=== PATIENT | female | born 1995 | race African-American/Black ===

== ENCOUNTER 2018-05-01 17:43 | Emergency (ER) | payer BC ==
[~2018-05-01] VITALS: Ht 170.2 cm; Wt 81.9 kg
[2018-05-01 18:00] VITALS: BP 115/65; PULSE 67; RESP 16; TEMP 98.3; O2SAT 100
[2018-05-01] MEDS ORDERED: HYDR1CRE TOPICAL (18:38)
--- NOTE | 2018-05-01 18:39 | PD ---
HPI Chief Complaint: Skin Problem Time Seen by Provider: 18:14 Travel History International Travel<30 days: No Contact w/Intl Traveler<30days: No Traveled to known affect area: No History of Present Illness HPI This is a 23-year-old female here with a pruritic rash to her left medial thigh 2 days. Symptom severity is mild. She has not attempted any [id number] medications. Denies any new soaps, body lotions or detergents. No aggravating or alleviating factors. PFSH Past Medical History Medical History: Denies Significant Hx Medical other: Yes (l breast surgery/benign) Tetanus Vaccination: < 5 Years Influenza Vaccination: No ?: Not LMP: 04/18/18 Social History Alcohol Use: Yes (occ) Tobacco Use: Yes (occ) Allergies-Medications (Allergen,Severity, Reaction): Coded Allergies: No Known Allergies (Unverified , 05/01/18) Reported Meds & Prescriptions Reported Meds & Active Scripts Active Review of Systems Except as stated in HPI: all other systems reviewed are Neg General / Constitutional: No: Fever Eyes: No: Visual changes HENT: No: Headaches Cardiovascular: No: Chest Pain or Discomfort Respiratory: No: Shortness of Breath Gastrointestinal: No: Abdominal Pain Genitourinary: No: Dysuria Physical Exam Narrative GENERAL: Alert and well-appearing 23-year-old female SKIN: Warm and dry. Very faint raised erythematous rash to the left medial thigh encompassing a 3 x 2 cm area. HEAD: Normocephalic. EYES: No injection or drainage. NECK: Supple, trachea midline. CARDIOVASCULAR: Regular rate and rhythm RESPIRATORY: Breath sounds equal bilaterally. No accessory muscle use. Data Data Last Documented VS Vital Signs Date Time Temp Pulse Resp B/P (MAP) Pulse Ox O2 Delivery O2 Flow Rate FiO2 05/01/18 18:00 98.3 67 16 115/65 (82) 100 MDM Medical Decision Making Medical Screen Exam Complete: Yes Emergency Medical Condition: Yes Differential Diagnosis Contact dermatitis, viral rash, eczema Narrative Course 23-year-old female here for evaluation of a rash to her left thigh. She is well -appearing. Vital signs are stable. Diagnosis Primary Impression: Rash and nonspecific skin eruption Referrals: Primary Care Physician Additional Instructions: You may use Benadryl 25 mg every 6 hours as needed for itching. Hydrocortisone cream. Follow-up with your primary doctor Disposition: DISCHARGE HOME Condition: Stable Ashleigh Camacho May 01, 2018 18:39
== END 2018-05-01 18:55 | disposition home or self-care (01) ==
LOC: PHEFT 17:43
DX: R21 Rash and other nonspecific skin eruption (principal); Z72.0 Tobacco use
CPT/HCPCS: 99282